=== PATIENT | female | born 1950 | race Two or more races ===

== ENCOUNTER 2022-02-27 10:10 | Outpatient (REF) | payer MEDICARE, SELFPAY ==
--- NOTE | ~2022-02-27 | XR_ITS ---
EXAMINATION: XR KNEE, LEFT CLINICAL INFORMATION: Osteoarthritis COMPARISON: None TECHNIQUE: Four views of the left knee. FINDINGS: The bones are osteopenic. There is marked joint space narrowing at the patellofemoral and femoral tibial joints. There may be some subchondral cyst formation. No significant osteophyte formation is seen. There is a large joint effusion. XR/XR knee LT 4V IMPRESSION: Osteopenia. Severe arthritis and large joint effusion.
[2022-02-27 13:19] LABS: MANUAL DIFF FLAG NO
[2022-02-27 13:26] LABS: Basophils Absolute Auto 0.1 X10*3/uL (0.0-0.2); Basophils Percent Auto 0.5 % (0-2); Eosinophils Percent Auto 0.3 % (0-4); Hematocrit 44.1 % (37.0-47.0); Hemoglobin 14.1 g/dl (12.0-16.0); Imm Gran Abs Auto 0.09 X10*3/uL (0.00-0.03); Imm Gran Pct Auto 0.7 % (0.0-0.4); Lymphocytes Absolute Auto 2.9 X10*3/uL (1.2-4.9); Lymphocytes Percent Auto 22.6 % (20-40); Mean Corpuscular Hemoglobin 27.1 pg (27.0-33.0); Mean Corpuscular Volume 84.6 fL (80.0-98.0); Mean Platelet Volume 10.2 fL (9.4-12.3); Monocytes Absolute Auto 0.9 X10*3/uL (0.1-1.2); Monocytes Percent Auto 7.3 % (2-11); Neutrophils Absolute Auto 8.8 x10*3/uL (2.0-8.3); Neutrophils Percent Auto 68.6 % (45-73); Platelet Count 379 X10*3/uL (160-400); Red Blood Count 5.21 X10*6/uL (4.20-5.50); Red Cell Distribution Width 13.2 % (11.0-16.0); White Blood Count 12.8 X10*3/uL (4.8-10.8)
[2022-02-27 13:44] LABS: Alanine Aminotransferase 17 U/L (0-31); Albumin Level 3.9 g/dL (3.5-5.0); Alkaline Phosphatase 100 U/L (39-117); Anion Gap 13 (12-20); Aspartate Amino Transferase 14 U/L (5-31); Bilirubin Total 0.5 mg/dL (0.0-1.0); Blood Urea Nitrogen 10 mg/dL (9-16); Calcium 9.4 mg/dL (8.4-10.2); Carbon Dioxide 28 mmol/L (22-29); Chloride 101 mmol/L (96-108); Cholesterol 223 mg/dL; Estimated Glomerular Filt Rate > 60; Glucose Fasting 108 mg/dL (60-99); HDL Cholesterol 54 mg/dL; LDL Cholesterol Calculated 142 mg/dl; Potassium 3.8 mmol/L (3.3-5.1); Sodium 138 mmol/L (135-145); Total Protein 6.8 g/dL (6.5-8.0); Triglycerides 135 mg/dL
== END 2022-02-27 10:11 | disposition home or self-care (01) ==
LOC: HO.XRAY 10:10
PROVIDERS: PCP Internal Medicine; Visit Provider Internal Medicine
DX: Z00.01 Encounter for general adult medical examination with abnormal findings (principal); M17.12 Unilateral primary osteoarthritis, left knee; F32.9 Major depressive disorder, single episode, unspecified; I10 Essential (primary) hypertension
CPT/HCPCS: 36415; 73564; 80053; 80061; 84443; 85025

== ENCOUNTER 2022-03-06 12:04 | Outpatient (REF) | payer MEDICARE, SELFPAY ==
--- NOTE | ~2022-03-06 | XR_ITS ---
EXAMINATION: XR KNEE AP STANDING CLINICAL INFORMATION: Pain COMPARISON: Left knee radiographs 02/27/2022 TECHNIQUE: AP bilateral standing view of the knees was obtained. XR/XR knee standing BI FINDINGS/IMPRESSION: No acute fracture or dislocation appreciated on this limited single view. Advanced degenerative changes of the left knee involving the medial lateral compartment joint space with near [id number] articulation. Moderate degenerative changes of the right knee with loss of medial and lateral compartment joint space, medial compartment osteophytes and spurring of the tibial spines. Generalized muscular atrophy.
== END 2022-03-06 12:05 | disposition home or self-care (01) ==
LOC: HO.HOSX 12:04
PROVIDERS: Visit Provider Orthopaedic Surgery
DX: M17.12 Unilateral primary osteoarthritis, left knee (principal)
CPT/HCPCS: 73565; 99202

== ENCOUNTER → 2022-05-02 10:00 | Outpatient (BNVA) | payer MEDICARE, SELFPAY | PROVIDERS: PCP Internal Medicine; Visit Provider Orthopaedic Surgery | DX: Z13.89 Encounter for screening for other disorder (principal) ==

== ENCOUNTER 2022-05-30 06:13 | Inpatient (IN) | payer MEDICARE, OTHER, MEDICAID, SELFPAY ==
--- NOTE | 2022-05-02 11:15 | ECG_ITS ---
Test Reason : Z01.810 Blood Pressure : / mmHG Vent. Rate : 077 BPM Atrial Rate : 077 BPM P-R Int : 158 ms QRS Dur : 080 ms QT Int : 402 ms P-R-T Axes : 052 042 027 degrees QTc Int : 454 ms Normal sinus rhythm Normal ECG No previous ECGs available Referred By: Jalil Giles Electronically Signed By:VERA WALKER
[2022-05-02 11:26] LABS: MANUAL DIFF FLAG NO
[2022-05-02 11:43] LABS: Basophils Percent Auto 0.4 % (0-2); Eosinophils Absolute Auto 0.2 X10*3/uL (0.0-0.4); Eosinophils Percent Auto 1.4 % (0-4); Hematocrit 36.6 % (37.0-47.0); Hemoglobin 11.4 g/dl (12.0-16.0); Imm Gran Abs Auto 0.04 X10*3/uL (0.00-0.03); Imm Gran Pct Auto 0.4 % (0.0-0.4); Lymphocytes Absolute Auto 2.6 X10*3/uL (1.2-4.9); Lymphocytes Percent Auto 24.2 % (20-40); Mean Corpuscular HGB Conc 31.1 g/dl (31.0-35.0); Mean Corpuscular Hemoglobin 26.2 pg (27.0-33.0); Mean Corpuscular Volume 84.1 fL (80.0-98.0); Mean Platelet Volume 9.1 fL (9.4-12.3); Monocytes Absolute Auto 1.1 X10*3/uL (0.1-1.2); Neutrophils Absolute Auto 6.9 x10*3/uL (2.0-8.3); Neutrophils Percent Auto 63.6 % (45-73); Platelet Count 485 X10*3/uL (160-400); Red Blood Count 4.35 X10*6/uL (4.20-5.50); Red Cell Distribution Width 14.1 % (11.0-16.0); White Blood Count 10.8 X10*3/uL (4.8-10.8)
[2022-05-02 12:14] LABS: Anion Gap 13 (12-20); Blood Urea Nitrogen 27 mg/dL (9-16); Calcium 9.3 mg/dL (8.4-10.2); Carbon Dioxide 29 mmol/L (22-29); Chloride 103 mmol/L (96-108); Estimated Glomerular Filt Rate > 60; Glucose Random 94 mg/dL (60-115); Potassium 3.9 mmol/L (3.3-5.1); Sodium 141 mmol/L (135-145)
[2022-05-16 14:39] VITALS: BP 169/74; PULSE 75; RESP 16; O2SAT 99; BMI 31.1
--- NOTE | 2022-05-16 14:49 | HO.ANESPROP2 ---
Documented by User: Lucero Whitaker NP 05/16/22 14:54 HPI - Anesthesia Eval Consult details Narrative: 72yo F for Left Knee Replacement Total PCP cleared [facility] Active Problems Active Problems: All Active Problems (Updated 05/16/22 @ 13:54 by Rea Diaz RN) Osteoarthritis of left knee (Acute) Past Medical History Medical History Arthritis Depression Hypercholesteremia Hypertension Insomnia Family History Family history of problems with anesthesia: No Surgical History Surgical History Hx of appendectomy Hx of section Hx of colonoscopy Hx of left cataract extraction Hx of left knee surgery History of Problems with Anesthesia: No Social History Social History Are you a primary career development coordinator/teacher to a significant other at home: No Do you presently have visiting nurse or other home services: No Patient Tobacco Use Status: Never used Tobacco Use of substances other than those prescribed or required for medical reasons: No Have you been hit, kicked, punched, or otherwise hurt by someone within the past year? If so, by whom?: No Are you DNR?: No Advance Directives: No Advance Directives Information Provided: Yes Advance Directives on File: No Recently lost weight without trying: No Narrative Narrative: No recent illness No CP/SOB within limits of knee pain Meds Allergies Allergy/AdvReac Type Severity Reaction Status Date / Time oxycodone [From Percocet] Allergy Anxiety Verified 05/30/22 07:12 pregabalin [From Lyrica] Allergy Rash Verified 05/25/22 09:59 tramadol Allergy Anxiety Verified 05/25/22 09:59 seafood AdvReac Vomiting Verified 05/30/22 07:12 Home Medications Medication Instructions Recorded Confirmed Last Taken Type diclofenac sodium 3 % topical gel 1 appl topical BID 05/02/22 05/16/22 Unknown History ibuprofen 600 mg tablet 600 mg PO TID PRN Pain 05/02/22 05/16/22 Unknown History mirtazapine 30 mg tablet 30 mg PO BEDTIME 05/02/22 05/16/22 Unknown History telmisartan 20 mg tablet 20 mg PO DAILY 05/02/22 05/16/22 Unknown History hydrochlorothiazide 12.5 mg capsule 1 cap PO DAILY 05/16/22 05/16/22 Unknown History magnesium oxide 500 mg tablet 500 mg PO DAILY 05/16/22 05/16/22 Unknown History potassium gluconate 550 mg (90 mg) 550 mg PO DAILY 05/16/22 05/16/22 Unknown History tablet rosuvastatin 10 mg tablet 10 mg PO DAILY 05/16/22 05/16/22 Unknown History vitamin B complex 1 tab PO DAILY 05/16/22 05/16/22 Unknown History trazodone 50 mg tablet 50 mg PO BEDTIME PRN Insomnia 05/25/22 05/30/22 Unknown History Exam Exam Date and Time: May 16, [id number] Height,Weight and Vital Signs: Height 5 ft 5 in Weight 84.822 kg Last Vital Signs Pulse 75 05/16/22 14:39 Resp 16 05/16/22 14:39 BP 169/74 H 05/16/22 14:39 Pulse Ox 99 05/16/22 14:39 O2 Del Method 05/16/22 14:39 Pertinent Lab Results Pertinent Lab Results: Laboratory Tests 05/02/22 05/02/22 11:25 11:25 WBC 10.8 RBC 4.35 Hgb 11.4 L Hct 36.6 L MCV 84.1 MCH 26.2 L MCHC 31.1 RDW 14.1 Plt Count 485 H D MPV 9.1 L Immature Gran % (Auto) 0.4 Neut % (Auto) 63.6 Lymph % (Auto) 24.2 [place] % (Auto) 10.0 Eos % (Auto) 1.4 Baso % (Auto) 0.4 Lymph # (Auto) 2.6 [place] # (Auto) 1.1 Eos # (Auto) 0.2 Baso # (Auto) 0.0 Abs Immat Gran (auto) 0.04 H Absolute Neuts (auto) 6.9 Absolute Nucleated RBC 0.000 Nucleated RBC % (auto) 0.0 Sodium 141 Potassium 3.9 Chloride 103 Carbon Dioxide 29 Anion Gap 13 BUN 27 H D Creatinine 0.70 Estim Creat Clear Calc TNP Estimated GFR > 60 Random Glucose 94 Calcium 9.3 Airway Mallampati Class: III TM Dist: >3cm Neck ROM: Full Denture: Upper (Implants on upper) Loose/Missing/Broken Teeth: Yes (2 molars missing) Heart: RRR Lungs: CTAB Assessment and Plan Assessment Anesthesia Assessment: Anesthesia Plan Discussed and PAT Visit Final Anesthetic Review Family History of Problems with Anesthesia: No History of Problems with Anesthesia: No Documented by User: Yair Swain MD 05/30/22 09:12 [facility] Past Medical History Medical History Arthritis Depression Hypercholesteremia Hypertension Insomnia Surgical History Surgical History Hx of appendectomy Hx of section Hx of colonoscopy Hx of left cataract extraction Hx of left knee surgery Social History Social History Are you a primary career development coordinator/teacher to a significant other at home: No Do you presently have visiting nurse or other home services: No Patient Tobacco Use Status: Never used Tobacco Use of substances other than those prescribed or required for medical reasons: No Have you been hit, kicked, punched, or otherwise hurt by someone within the past year? If so, by whom?: No Are you DNR?: No Advance Directives: No Advance Directives Information Provided: Yes Advance Directives on File: No Recently lost weight without trying: No Meds Allergies Allergy/AdvReac Type Severity Reaction Status Date / Time oxycodone [From Percocet] Allergy Anxiety Verified 05/30/22 07:12 pregabalin [From Lyrica] Allergy Rash Verified 05/25/22 09:59 tramadol Allergy Anxiety Verified 05/25/22 09:59 seafood AdvReac Vomiting Verified 05/30/22 07:12 Home Medications Medication Instructions Recorded Confirmed Last Taken Type diclofenac sodium 3 % topical gel 1 appl topical BID 05/02/22 05/16/22 Unknown History ibuprofen 600 mg tablet 600 mg PO TID PRN Pain 05/02/22 05/16/22 Unknown History mirtazapine 30 mg tablet 30 mg PO BEDTIME 05/02/22 05/16/22 Unknown History telmisartan 20 mg tablet 20 mg PO DAILY 05/02/22 05/16/22 Unknown History hydrochlorothiazide 12.5 mg capsule 1 cap PO DAILY 05/16/22 05/16/22 Unknown History magnesium oxide 500 mg tablet 500 mg PO DAILY 05/16/22 05/16/22 Unknown History potassium gluconate 550 mg (90 mg) 550 mg PO DAILY 05/16/22 05/16/22 Unknown History tablet rosuvastatin 10 mg tablet 10 mg PO DAILY 05/16/22 05/16/22 Unknown History vitamin B complex 1 tab PO DAILY 05/16/22 05/16/22 Unknown History trazodone 50 mg tablet 50 mg PO BEDTIME PRN Insomnia 05/25/22 05/30/22 Unknown History Assessment and Plan Final Anesthetic Review NPO: Yes ASA Class: III Final Preanesthetic Review: No Changes in Pt Med Stat, Meds/Allgs Chart Reviewed, Consent Obtained/Reviewed and Anes Risks/Benef Reviewed Patient Risk: Intermediate Procedure Risk: Intermediate Anesthetic Plan Anesthetic Plan: MAC:, Spinal and Regional Block Disposition: Standard PACU
[2022-05-16 16:51] LABS: MRSA Nasal PCR NEGATIVE (Negative); SA Nasal PCR POSITIVE (Negative)
[2022-05-30] VITALS (20 sets, daily range): BP systolic 114–187; BP diastolic 47–84; PULSE 65–92; RESP 17–20; TEMP 36.4–36.7; O2SAT 94–100
--- NOTE | ~2022-05-30 | XR_ITS ---
EXAMINATION: XR KNEE, LEFT CLINICAL INFORMATION: Status post TKA COMPARISON: None TECHNIQUE: Two views of the left knee. FINDINGS: Left knee prosthesis intact. No fracture or destructive lesion or alignment abnormality. Skin marie noted. XR/XR knee LT 2V IMPRESSION: Appropriate alignment of the left total knee arthroplasty.
[2022-05-30 06:37] LABS: COVID-19 Test Negative (Negative)
[2022-05-30] MEDS: Lactated Ringers 1,000 ML 100 ML IVCONT ×2 (06:49→16:04)
--- NOTE | 2022-05-30 07:43 | MHC.SHP ---
Pre-Procedural Eval Section A Date of Service: 05/30/22 The patient is an INPATIENT: No Changes since office visit: Yes Patient answered all questions; No Cold of Flu in the past 2 weeks, No New Medical Problems and No Changes in Medication The History & Physical has been completed within 30 days and I have reviewed it.: Yes Section B Chief Complaint: LTKA Allergies: Allergies Allergy/AdvReac Type Severity Reaction Status Date / Time oxycodone [From Percocet] Allergy Anxiety Verified 05/30/22 07:12 pregabalin [From Lyrica] Allergy Rash Verified 05/25/22 09:59 tramadol Allergy Anxiety Verified 05/25/22 09:59 seafood AdvReac Vomiting Verified 05/30/22 07:12 Plan I have reviewed the history and physical and performed a pertinent physical examination on my patient. No changes have occurred unless specified.
--- NOTE | 2022-05-30 08:51 | PHA.MEDREC ---
Pharmacy Consult ? Medication Reconciliation Pharmacy has reviewed the medication reconciliation completed by nursing.
--- NOTE | 2022-05-30 09:54 | PM.OP ---
Brief Operative Note Date of Service: 05/30/22 Pre-op diagnosis: Left knee OA Post-op diagnosis: same Procedure: Left TKA Implants: Moriches cemented Triathalon PS 01/26/11/32a Surgeon: Jalil Giles MD Anesthesia: regional and spinal Was an Director Informatics used for this Procedure?: Yes Director Informatics: Elizabeth Sloan Estimated blood loss (mL): 150 IV fluids (mL): 1,000 Pathology: other Condition: stable Disposition: PACU
--- NOTE | 2022-05-30 09:59 | P.OP_ITS ---
Operative Note Operative Note Date of Service: 05/30/22 Narrative: Date of Service: 05/30/22 Pre-op diagnosis: Left knee OA Post-op diagnosis: same Procedure: Left TKA Implants: Kerrick cemented Triathalon PS 01/26/TS/32a Surgeon: Jalil Giles MD Anesthesia: regional and spinal Was an Utility Sales Representative used for this Procedure?: Yes Utility Sales Representative: Elizabeth Sloan Estimated blood loss (mL): 150 IV fluids (mL): 1,000 Pathology: other Condition: stable Disposition: PACU Procedure in detail: The patient was brought to the operating room and prepped and draped in standard sterile fashion. A time-out was called to identify proper site proper procedure proper surgeon and IV antibiotics were administered. 1 g of IV tranexamic acid was administered. I began by making a midline incision to the retinaculum and performed a medial parapatellar arthrotomy. The patella was translated laterally and the knee was flexed up. She had synovitis with tricompartmental severe OA with tibial eburnation. I performed a small medial peel and resected the infrapatellar fat pad. Coke's line was then used to drill my intramedullary femoral guide and my distal femur cut of 10mm was made in 5 degrees of valgus while protecting the soft tissues. I then measured a # 3 femur and placed my cutting guide and made my anterior posterior and chamfer cuts protecting the soft tissues at all times. I then made my box but removing the PCL. Once I was satisfied with my cuts I turned my attention to the tibia. I removed the meniscus medially and laterally and , using an external cutting guide, in line with the tibial crest and the third ray, I made my distal tibial cut in 0 deg slope of while protecting the PCL the posterior soft tissues at all times. An extension block was used to confirm appropriate amount of bony resection. I then sized a #3 tibia and once I was satisfied that there was complete tibial coverage I placed my trial and with the trial femur in place took the knee through range of motion. I was satisfied with the extension and flexion as well as the stability and balance at 0, 30 and 90 degrees. I then turned my attention to the patella where I removed 1 cm from the undersurface of the patella and then trialed a 32a patellar button. Again the knee was taken through range of motion I was satisfied with the tracking. I then returned to the femur and drilled my femoral lug holes and prepared the tibia. A femoral bone plug was placed and the knee was irrigated copiously. I then cemented the patella, tibia and femur in standard fashion. I trialed different inserts until I selected a #11TS insert. The final insert was placed and a 3 minutes iodine soak with local TXA was performed. The knee was then closed with a running Quill suture, a 3 0 Vicryl and marie on the skin. Patient was then placed in sterile dressing and brought to recovery room in stable condition there were no known complications.
[2022-05-30] MEDS: HYDROmorphone HCl 0.5 MG/0.5 ML SYRINGE 0.25 MG IVPUSH ×4 (10:39→20:38)
[2022-05-30] MEDS: Acetaminophen 325 MG TABLET 650 MG PO ×2 (11:38→19:44)
[2022-05-30] MEDS: oxyCODONE HCl Immed Release 5 MG TABLET 10 MG PO ×2 (12:23→19:44)
--- NOTE | 2022-05-30 15:44 | P.CONHOSP_ITS ---
History of Present Illness Data of Consult Service Date: 05/30/22 Primary Care Provider: Marita Raines MD HPI Reason for consult: Routine medical management This is a 72 yo F with a PMH of HTN, HLD, OA who is admitted post L TKA. Medical consult requested for routine medical management. Pt is seen and examined in her room. Director Of Scout Work services are used. Her son is bedside. The patient reports L leg pain, but otherwise no complaints. She initially states she does not have any chronic medical diagnosis, but upon questioning her re: her home meds, she does endorse HTN and HLD. Review of Systems Review of Systems: negative except HPI [facility] Medical History (Updated 05/30/22 @ 15:53 by Bird Cerrato MD) Arthritis Depression Hypercholesteremia Hypertension Insomnia Surgical History Hx of appendectomy Hx of section Hx of colonoscopy Hx of left cataract extraction Hx of left knee surgery Social History Household Members: Other Household Members Other:: son Housing: Apartment Are you a primary health care consultant to a significant other at home: No Do you presently have visiting nurse or other home services: No Patient Tobacco Use Status: Never used Tobacco Use of substances other than those prescribed or required for medical reasons: No Have you been hit, kicked, punched, or otherwise hurt by someone within the past year? If so, by whom?: No Do you feel safe in your current relationship?: No Current Relationship Is there a partner from a previous relationship who is making you feel unsafe now?: No Are you made to feel afraid or neglected: No Are you DNR?: No Advance Directives: No Advance Directives Information Provided: Yes Advance Directives on File: No Do you have thoughts of harming others: None Do you have a plan to hurt others: No Plan Recently lost weight without trying: No How much weight loss: Not applicable Eating poorly because of decreased appetite: No Nutrition screen score: 0 Nutrition Risks: No Nutritional Risk Patient : No : No Poor oral hygiene: No Meds Allergies Allergy/AdvReac Type Severity Reaction Status Date / Time oxycodone [From Percocet] Allergy Anxiety Verified 05/30/22 15:07 pregabalin [From Lyrica] Allergy Rash Verified 05/30/22 15:07 tramadol Allergy Anxiety Verified 05/30/22 15:07 seafood AdvReac Vomiting Verified 05/30/22 15:07 Active Medications: Current Medications Acetaminophen (Acetaminophen 325 Mg Tablet) 650 mg PO Q6H PRN PRN Reason: Pain, Mild (Pain Scale 1-3) Aspirin (Aspirin 325 Mg Tablet) 325 mg PO BID [facility] Atorvastatin Calcium (Atorvastatin Calcium 40 Mg Tablet) 40 mg PO DAILY [facility] Celecoxib (Celecoxib 200 Mg Capsule) 200 mg PO BID [facility] Docusate Sodium (Docusate Sodium 100 Mg Capsule) 100 mg PO BID [facility] Hydrochlorothiazide (Hydrochlorothiazide 12.5 Mg Tablet) 12.5 mg PO DAILY [facility]; Protocol Hydromorphone HCl (Hydromorphone Hcl 0.5 Mg/0.5 Ml Syringe) 0.25 mg IVPUSH Q4H PRN; Protocol PRN Reason: Pain, Severe (Pain Scale 7-10) Lactated Ringer's (Lr) 1,000 mls @ 100 mls/hr IVCONT .Q10H [facility] Magnesium Oxide (Magnesium Oxide 400 Mg Tablet) 400 mg PO DAILY [facility] Mirtazapine (Mirtazapine 30 Mg Tablet) 30 mg PO BEDTIME [facility] Multivitamins/Vitamin C (Multivitamin Tablet) 1 tab PO DAILY [facility] Non-Formulary Medication (Diclofenac Sodium) 1 appl TOPICAL BID [facility] Non-Formulary Medication (Potassium Gluconate) 550 mg PO DAILY [facility] Ondansetron HCl (Ondansetron Hcl 4 Mg/2 Ml Vial) 4 mg IVPUSH Q8H PRN PRN Reason: Nausea and Vomiting Oxycodone HCl (Oxycodone Hcl Immed Release 5 Mg Tablet) 10 mg PO Q4H PRN PRN Reason: Pain, Moderate (Pain Scale 4-6 Last Admin: 05/30/22 12:23 Dose: 10 mg Oxycodone HCl (Oxycodone Hcl Er 10 Mg Tab.Er.12h) 10 mg PO BID [facility] Sodium Chloride (0.9 % Sodium Chloride Flush 3 Ml Syringe) 3 ml IVFLUSH QSHIFT [facility] Trazodone HCl (Trazodone Hcl 50 Mg Tablet) 50 mg PO BEDTIME PRN PRN Reason: Insomnia Valsartan (Valsartan 40 Mg Tablet) 40 mg PO DAILY [facility] Home Medications Medication Instructions Recorded Confirmed Last Taken Type diclofenac sodium 3 % topical gel 1 appl topical BID 05/02/22 05/16/22 Unknown History ibuprofen 600 mg tablet 600 mg PO TID PRN Pain 05/02/22 05/16/22 Unknown History mirtazapine 30 mg tablet 30 mg PO BEDTIME 05/02/22 05/16/22 Unknown History telmisartan 20 mg tablet 20 mg PO DAILY 05/02/22 05/16/22 Unknown History hydrochlorothiazide 12.5 mg capsule 1 cap PO DAILY 05/16/22 05/16/22 Unknown History magnesium oxide 500 mg tablet 500 mg PO DAILY 05/16/22 05/16/22 Unknown History potassium gluconate 550 mg (90 mg) 550 mg PO DAILY 05/16/22 05/16/22 Unknown History tablet rosuvastatin 10 mg tablet 10 mg PO DAILY 05/16/22 05/16/22 Unknown History vitamin B complex 1 tab PO DAILY 05/16/22 05/16/22 Unknown History trazodone 50 mg tablet 50 mg PO BEDTIME PRN Insomnia 05/25/22 05/30/22 Unknown History Physical Exam Vital Signs and Narrative: Vital Signs: Last Vital Signs Temp 97.5 F 05/30/22 09:48 Pulse 79 05/30/22 13:29 Resp 17 05/30/22 13:29 BP 121/60 05/30/22 13:29 Pulse Ox 94 05/30/22 13:29 O2 Del Method 05/30/22 13:29 O2 Flow Rate 6 05/30/22 09:48 BMI result Body Mass Index 31.1 Const: Other: General - sleepy but easily awakens and answers questions appropriately Cardiovascular - regular rate and rhythm, S1-S2 Lungs - normal respiratory effort, clear to auscultation bilaterally, no wheezing Abdomen - soft, nontender, no rebound or guarding Extremities - no edema bilaterally Neuro - awake and alert, no focal deficits Results Labs CBC and Chem 7: 05/02/22 11:25 05/02/22 11:25 Labs: Laboratory Results - last 24 hr 05/30/22 05/30/22 06:00 06:59 COVID-19 ([facility]) Negative COVID-19 Clin Com See Note Blood Type O Positive Antibody Screen NEGATIVE Imaging Radiologist's Impressions: Impressions Knee X-Ray 07/05/22 10:18 IMPRESSION: Appropriate alignment of the left total knee arthroplasty. Assessment and Plan (1) Hypertension: Status: Acute Plan This is a 72 yo F with a PMH of HTN, HLD, OA who is s/p L TKA. Medical consult requested for routine medical mgmt. 1. HTN continue baseline meds monitor BP 2. HLD statin 3. OA s/p L TKA mgmt per ortho would rec to check post-op labs tomorrow AM. Will follow tomorrow.
[2022-05-30] MEDS: ondansetron HCL 4 MG/2 ML VIAL IVPUSH (16:03)
[2022-05-30] MEDS: ceFAZolin Sodium/Dextrose,Iso 2 GM/50 ML PIGGYBACK IV (16:04)
[2022-05-30] MEDS: traZODone HCL 50 MG TABLET PO (20:38)
[2022-05-30] MEDS: Mirtazapine 30 MG TABLET PO (20:38)
[2022-05-30] MEDS: Docusate Sodium 100 MG CAPSULE PO (20:38)
[2022-05-30] MEDS: Celecoxib 200 MG CAPSULE PO (20:38)
[2022-05-30] MEDS: oxyCODONE HCl ER 10 MG TAB.ER.12H PO (20:38)
[2022-05-31] VITALS (8 sets, daily range): BP systolic 97–172; BP diastolic 50–92; PULSE 74–96; RESP 14–18; TEMP 36.2–36.9; O2SAT 92–98
[2022-05-31] MEDS: Lactated Ringers 1,000 ML 100 ML IVCONT ×3 (00:27→21:44)
[2022-05-31] MEDS: HYDROmorphone HCl 0.5 MG/0.5 ML SYRINGE 0.25 MG IVPUSH ×3 (00:27→21:41)
[2022-05-31 06:29] LABS: MANUAL DIFF FLAG NO
[2022-05-31 06:45] LABS: Basophils Percent Auto 0.2 % (0-2); Eosinophils Percent Auto 0.1 % (0-4); Hematocrit 29.3 % (37.0-47.0); Hemoglobin 9.2 g/dl (12.0-16.0); Imm Gran Abs Auto 0.05 X10*3/uL (0.00-0.03); Imm Gran Pct Auto 0.6 % (0.0-0.4); Lymphocytes Percent Auto 23.8 % (20-40); Mean Corpuscular HGB Conc 31.4 g/dl (31.0-35.0); Mean Corpuscular Hemoglobin 25.8 pg (27.0-33.0); Mean Corpuscular Volume 82.1 fL (80.0-98.0); Mean Platelet Volume 9.6 fL (9.4-12.3); Monocytes Absolute Auto 0.9 X10*3/uL (0.1-1.2); Monocytes Percent Auto 10.8 % (2-11); Neutrophils Absolute Auto 5.4 x10*3/uL (2.0-8.3); Neutrophils Percent Auto 64.5 % (45-73); Platelet Count 373 X10*3/uL (160-400); Red Blood Count 3.57 X10*6/uL (4.20-5.50); Red Cell Distribution Width 13.7 % (11.0-16.0); White Blood Count 8.4 X10*3/uL (4.8-10.8)
[2022-05-31 06:55] LABS: Anion Gap 10 (12-20); Blood Urea Nitrogen 11 mg/dL (9-16); Calcium 8.6 mg/dL (8.4-10.2); Carbon Dioxide 29 mmol/L (22-29); Chloride 105 mmol/L (96-108); Creatinine Clr Calc Pharmacy 89.5; Estimated Glomerular Filt Rate > 60; Glucose Fasting 115 mg/dL (60-99); Sodium 140 mmol/L (135-145)
--- NOTE | 2022-05-31 07:54 | PM.PNORT ---
Subjective Subjective Date of Service: 05/31/22 Interval history: POD1 s/p LTKA. No overnight events. Pain is well managed. Patient is resting comfortably in bed. Family member at bedside. No additional complaints. Physical Exam Vital Signs: Vital Signs: Last Vital Signs Temp 97.1 F 05/31/22 03:34 Pulse 75 05/31/22 03:34 Resp 14 05/31/22 03:34 BP 121/68 05/31/22 03:34 Pulse Ox 94 05/31/22 03:34 O2 Del Method 05/31/22 03:34 O2 Flow Rate 2 05/30/22 20:00 BMI result Body Mass Index 31.1 Const: General: cooperative, healthy appearing and no acute distress Resp: Effort & Inspection: normal respiratory effort and able to speak in complete sentences Cardio: Rate: regular rate Peripheral pulses: Peripheral pulses 2+ throughout GI: Palpation (GI): Soft to palpation Skin: Lesions: no lesions Rashes: no rashes Extrem: Other: Left knee Aquacel is clean, dry, and intact. NVI. Procedures Date of Service Date of Service: 05/31/22 Progress Note: A&P Assessment and plan (1) Status post total knee replacement, left: Status: Acute Assessment and Plan: Continue pain mgmnt Begin ASA for dvt ppx begin PT for LTKA Dispo planning-Pending PT eval, pain mgmnt Time Spent With Patient Time: Total time spent is greater than 50% in coordination of care (as documented) at patient's floor/unit and/or counseling patient: Quality Stroke Does the patient have a stroke diagnosis?: No VTE Prior VTE?: No VTE Risk Level:: Medical - moderate - high VTE Device Contraindication: N/A - Device Ordered VTE Drug Contraindication: N/A - Med Ordered
[2022-05-31] MEDS: Atorvastatin Calcium 40 MG TABLET PO (08:16)
[2022-05-31] MEDS: Celecoxib 200 MG CAPSULE PO ×2 (08:16→20:54)
[2022-05-31] MEDS: Docusate Sodium 100 MG CAPSULE PO ×2 (08:16→20:54)
[2022-05-31] MEDS: Multivitamin TABLET 1 TAB PO (08:16)
[2022-05-31] MEDS: Aspirin 325 MG TABLET PO ×2 (08:16→20:54)
[2022-05-31] MEDS: Valsartan 40 MG TABLET PO (08:16)
[2022-05-31] MEDS: Magnesium Oxide 400 MG TABLET PO (08:16)
[2022-05-31] MEDS: oxyCODONE HCl ER 10 MG TAB.ER.12H PO ×2 (08:16→20:54)
[2022-05-31] MEDS: hydroCHLOROthiazide 12.5 MG TABLET PO (08:16)
[2022-05-31] MEDS: diphenhydrAMINE HCL 25 MG TABLET PO ×2 (10:29→23:51)
[2022-05-31] MEDS: Acetaminophen 325 MG TABLET 650 MG PO (10:43)
[2022-05-31] MEDS: oxyCODONE HCl Immed Release 5 MG TABLET 10 MG PO ×3 (10:43→23:40)
--- NOTE | 2022-05-31 11:15 | HO.POSTANES ---
Post Anesthesia Evaluation Post Anesthesia Evaluation Vital Signs: Vital Signs Temp Pulse Resp BP Pulse Ox O2 Del Method 05/31/22 08:11 121/59 L 05/31/22 07:57 97.9 F 74 16 97/50 L 92 Room Air 05/31/22 03:34 97.1 F 75 14 121/68 94 Room Air 05/31/22 00:00 97.8 F 78 16 137/61 94 Room Air Anesthesia: Spinal and Nerve Block Mental Status: Awake Pain Control: Satisfactory Nausea/Vomiting: None Hydration: Adequate Anesthesia-Related Issues: No Anes. Related Issues
--- NOTE | 2022-05-31 11:41 | HO.PM.IMPN ---
Subjective Subjective Date of Service: 05/31/22 Interval History: cc: knee pain interval history:knee itchy Respiratory Respiratory: Reports no additional respiratory complaints Gastrointestinal Gastrointestinal: Reports no additional gastrointestinal complaints Physical Exam Vital Signs: Vital Signs: Last Vital Signs Temp 98.4 F 05/31/22 11:19 Pulse 78 05/31/22 11:19 Resp 18 05/31/22 11:19 BP 120/60 05/31/22 11:19 Pulse Ox 93 05/31/22 11:19 O2 Del Method 05/31/22 11:19 O2 Flow Rate 2 05/30/22 20:00 BMI result Body Mass Index 31.1 General: AO X 3, no acute distress Resp: CTA bilateral, no accessory muscles used CVS: S1,S2,RRR GI: soft, non tender, non distended Neuro: motor grossly intact, alert Psych: appropriate affect, appropriate insight Objective Data Active Medications Acetaminophen (Acetaminophen 325 Mg Tablet) 650 mg PO Q6H PRN PRN Reason: Pain, Mild (Pain Scale 1-3) Last Admin: 05/31/22 10:43 Dose: 650 mg Documented By: CHRISTINA Aspirin (Aspirin 325 Mg Tablet) 325 mg PO BID [facility] Last Admin: 05/31/22 08:16 Dose: 325 mg Documented By: CHRISTINA Atorvastatin Calcium (Atorvastatin Calcium 40 Mg Tablet) 40 mg PO DAILY [facility] Last Admin: 05/31/22 08:16 Dose: 40 mg Documented By: CHRISTINA Celecoxib (Celecoxib 200 Mg Capsule) 200 mg PO BID [facility] Last Admin: 05/31/22 08:16 Dose: 200 mg Documented By: CHRISTINA Diphenhydramine HCl (Diphenhydramine Hcl 25 Mg Tablet) 25 mg PO Q6H PRN PRN Reason: Itching Last Admin: 05/31/22 10:29 Dose: 25 mg Documented By: CHRISTINA Docusate Sodium (Docusate Sodium 100 Mg Capsule) 100 mg PO BID [facility] Last Admin: 05/31/22 08:16 Dose: 100 mg Documented By: CHRISTINA Hydrochlorothiazide (Hydrochlorothiazide 12.5 Mg Tablet) 12.5 mg PO DAILY [facility]; Protocol Last Admin: 05/31/22 08:16 Dose: 12.5 mg Documented By: CHRISTINA Hydromorphone HCl (Hydromorphone Hcl 0.5 Mg/0.5 Ml Syringe) 0.25 mg IVPUSH Q4H PRN; Protocol PRN Reason: Pain, Severe (Pain Scale 7-10) Last Admin: 05/31/22 00:27 Dose: 0.25 mg Documented By: KATIE Lactated Ringer's (Lr) 1,000 mls @ 100 mls/hr IVCONT .Q10H [facility] Last Admin: 05/31/22 09:00 Dose: 100 mls/hr Documented By: CHRISTINA Magnesium Oxide (Magnesium Oxide 400 Mg Tablet) 400 mg PO DAILY [facility] Last Admin: 05/31/22 08:16 Dose: 400 mg Documented By: CHRISTINA Mirtazapine (Mirtazapine 30 Mg Tablet) 30 mg PO BEDTIME [facility] Last Admin: 05/30/22 20:38 Dose: 30 mg Documented By: KATIE Multivitamins/Vitamin C (Multivitamin Tablet) 1 tab PO DAILY [facility] Last Admin: 05/31/22 08:16 Dose: 1 tab Documented By: CHRISTINA Non-Formulary Medication (Diclofenac Sodium) 1 appl TOPICAL BID [facility] Non-Formulary Medication (Potassium Gluconate) 550 mg PO DAILY [facility] Ondansetron HCl (Ondansetron Hcl 4 Mg/2 Ml Vial) 4 mg IVPUSH Q8H PRN PRN Reason: Nausea and Vomiting Last Admin: 05/30/22 16:03 Dose: 4 mg Documented By: GIANA Oxycodone HCl (Oxycodone Hcl Immed Release 5 Mg Tablet) 10 mg PO Q4H PRN PRN Reason: Pain, Moderate (Pain Scale 4-6 Last Admin: 05/31/22 10:43 Dose: 10 mg Documented By: CHRISTINA Oxycodone HCl (Oxycodone Hcl Er 10 Mg Tab.Er.12h) 10 mg PO BID [facility] Last Admin: 05/31/22 08:16 Dose: 10 mg Documented By: CHRISTINA Sodium Chloride (0.9 % Sodium Chloride Flush 3 Ml Syringe) 3 ml IVFLUSH QSHIFT [facility] Last Admin: 05/31/22 08:19 Dose: Not Given Documented By: CHRISTINA Non-Admin Reason: IV Running Trazodone HCl (Trazodone Hcl 50 Mg Tablet) 50 mg PO BEDTIME PRN PRN Reason: Insomnia Last Admin: 05/30/22 20:38 Dose: 50 mg Documented By: KATIE Valsartan (Valsartan 40 Mg Tablet) 40 mg PO DAILY [facility] Last Admin: 05/31/22 08:16 Dose: 40 mg Documented By: CHRISTINA Labs CBC & Chem 7: 05/31/22 06:14 05/31/22 06:14 Labs: Laboratory Results - last 24 hr 05/31/22 05/31/22 06:14 06:14 MCV 82.1 MCH 25.8 L MCHC 31.4 RDW 13.7 Plt Count 373 MPV 9.6 Immature Gran % (Auto) 0.6 H Neut % (Auto) 64.5 Lymph % (Auto) 23.8 Dewey % (Auto) 10.8 Eos % (Auto) 0.1 Baso % (Auto) 0.2 Lymph # (Auto) 2.0 Dewey # (Auto) 0.9 Eos # (Auto) 0.0 Baso # (Auto) 0.0 Abs Immat Gran (auto) 0.05 H Absolute Neuts (auto) 5.4 Absolute Nucleated RBC 0.000 Nucleated RBC % (auto) 0.0 Anion Gap 10 L Estim Creat Clear Calc 89.5 Estimated GFR > 60 Fasting Glucose 115 H Calcium 8.6 D Assessment and Plan (1) Status post total knee replacement, left: Status: Acute Plan 72F presented for elective left TKA htn continue valsartan, hctz hld lipitor will sign off for now, please recall if needed Quality Stroke Does the patient have a stroke diagnosis?: No VTE Prior VTE?: No VTE Risk Level:: Medical - moderate - high VTE Device Contraindication: N/A - Device Ordered VTE Drug Contraindication: N/A - Med Ordered
--- NOTE | 2022-05-31 12:05 | MHC.CM.PN ---
IMM 05/31/22, EMR REVEIWED, PT W/R TKA, CM MET W/PT AND DTR AT BEDSIDE VIA HUMAN RESOURCES OFFICE MANAGER, PT REPORTS SHE LIVES W/ADULT SON, HAS A CANE, WALKER AND SHOWER BENCH, PT DENIES SERVICES AND DTR REPORTS THEY ARE IN THE PROCESS OF GETTING [facility] SERVICES FOR PT, PT'S SON NICOLE ASSISTS W/ALL NEEDS INCLUDING SHOWERING. PT REPORTS SHE WOULD LIKE TO RETURN HOME W/SERVICES AND DECLINES STR, DTR REPORTS SHE WILL NEED TRANSPORT SHE WILL NOT BE ABLE TO MANAGE 3 FLIGHTS OF STAIRS TO GET INTO APT. PCP: ALEXA COWART HCP: NICOLE ARMENDARIZ [phone] PFIZER X 3 D/C PLAN: HOME W/HVNA FOR HOME PT, [facility]SA FOR ANTICOAGULANT, PT WILL NEED TRANSPORT
[2022-05-31] MEDS: traZODone HCL 50 MG TABLET PO (20:54)
[2022-05-31] MEDS: Mirtazapine 30 MG TABLET PO (20:54)
[2022-05-31] MEDS: 0.9 % Sodium Chloride Flush 3 ML SYRINGE IVFLUSH (20:58)
[2022-06-01 04:00] VITALS: BP 128/64; PULSE 91; RESP 18; TEMP 36.6; O2SAT 93
[2022-06-01] MEDS: oxyCODONE HCl Immed Release 5 MG TABLET 10 MG PO (06:18)
[2022-06-01 06:39] LABS: MANUAL DIFF FLAG NO
[2022-06-01 06:48] LABS: Basophils Percent Auto 0.2 % (0-2); Eosinophils Absolute Auto 0.2 X10*3/uL (0.0-0.4); Eosinophils Percent Auto 2.4 % (0-4); Hematocrit 25.8 % (37.0-47.0); Hemoglobin 8.2 g/dl (12.0-16.0); Imm Gran Abs Auto 0.05 X10*3/uL (0.00-0.03); Imm Gran Pct Auto 0.6 % (0.0-0.4); Lymphocytes Absolute Auto 2.2 X10*3/uL (1.2-4.9); Mean Corpuscular HGB Conc 31.8 g/dl (31.0-35.0); Mean Corpuscular Hemoglobin 26.3 pg (27.0-33.0); Mean Corpuscular Volume 82.7 fL (80.0-98.0); Mean Platelet Volume 9.9 fL (9.4-12.3); Monocytes Absolute Auto 0.9 X10*3/uL (0.1-1.2); Monocytes Percent Auto 10.7 % (2-11); Neutrophils Absolute Auto 5.3 x10*3/uL (2.0-8.3); Neutrophils Percent Auto 61.1 % (45-73); Platelet Count 348 X10*3/uL (160-400); Red Blood Count 3.12 X10*6/uL (4.20-5.50); White Blood Count 8.7 X10*3/uL (4.8-10.8)
[2022-06-01 07:16] LABS: Anion Gap 9 (12-20); Blood Urea Nitrogen 6 mg/dL (9-16); Calcium 8.1 mg/dL (8.4-10.2); Carbon Dioxide 30 mmol/L (22-29); Chloride 105 mmol/L (96-108); Estimated Glomerular Filt Rate > 60; Glucose Fasting 113 mg/dL (60-99); Potassium 3.5 mmol/L (3.3-5.1); Sodium 140 mmol/L (135-145)
[2022-06-01 07:28] VITALS: BP 140/53; PULSE 100; RESP 18; TEMP 36.3; O2SAT 92
[2022-06-01] MEDS: Valsartan 40 MG TABLET PO (08:01)
[2022-06-01] MEDS: Aspirin 325 MG TABLET PO (08:01)
[2022-06-01] MEDS: Multivitamin TABLET 1 TAB PO (08:01)
[2022-06-01] MEDS: hydroCHLOROthiazide 12.5 MG TABLET PO (08:01)
[2022-06-01] MEDS: diphenhydrAMINE HCL 25 MG TABLET PO (08:01)
[2022-06-01] MEDS: Celecoxib 200 MG CAPSULE PO (08:02)
[2022-06-01] MEDS: oxyCODONE HCl ER 10 MG TAB.ER.12H PO (08:02)
[2022-06-01] MEDS: Docusate Sodium 100 MG CAPSULE PO (08:02)
[2022-06-01] MEDS: Magnesium Oxide 400 MG TABLET PO (08:02)
[2022-06-01] MEDS: Atorvastatin Calcium 40 MG TABLET PO (08:02)
[2022-06-01] MEDS: 0.9 % Sodium Chloride Flush 3 ML SYRINGE IVFLUSH (08:05)
--- NOTE | 2022-06-01 11:29 | P.DS_ITS ---
DS: Providers Provider Date of Service: 06/01/22 Date of admission: 05/30/22 06:13 Primary care physician: Marita Raines MD Consults: 05/30/22 14:57 Consult to Hospitalist Routine Consulting Provider: Hospitalist Reason For Exam: routine medical managment DS: Diagnosis Discharge Diagnosis (1) Status post total knee replacement, left: Status: Acute DS: Summary Hospital Course Hospital Course: The patient underwent a successful left total knee arthroplasty, was transferred to PACU and then to the floor to recover. During their stay, their vitals were stable, afebrile at 98.2. Labs were unremarkable, H/H 8.2/25.8 . POD 1 she was started on ASA for DVT ppx, they also received PT services twice a day. Prior to discharge, their dressing was change, incision clean dry and intact, new Aquacel dressing applied and the plan was to be discharged home with vna Time Spent with Patient Time attestation: Total time spent providing and/or coordinating discharge services: Discharge coordination time: Less than 30 minutes Quality: Safe Use of Opioids Does Pt have an Active Cancer Diagnosis on the Problem List?: No Quality: Stroke Does the patient have a stroke diagnosis?: No Physical Exam Vital Signs: Vital Signs: Last Vital Signs Temp 97.4 F 06/01/22 07:28 Pulse 100 06/01/22 07:28 Resp 18 06/01/22 07:28 BP 140/53 H 06/01/22 07:28 Pulse Ox 92 06/01/22 07:28 O2 Del Method 06/01/22 07:28 O2 Flow Rate 2 05/30/22 20:00 BMI result Body Mass Index 31.1 Const: General: cooperative, healthy appearing and no acute distress Resp: Effort & Inspection: normal respiratory effort and able to speak in complete sentences Cardio: Rate: regular rate Peripheral pulses: Peripheral pulses 2+ throughout GI: Palpation (GI): Soft to palpation Skin: General skin exam: no rashes or lesions noted Extrem: Other: incision clean dry and intact. Noy intact. No erythema or joint effusion. Calf supple nontender. Neurovascularly intact. DS: Data Data Completed and Pending Pending studies at discharge: Pending at discharge 05/30/22 09:21 Surgical [PTH] Routine Labs on day of discharge: Laboratory Results - last 24 hr 06/01/22 06/01/22 05:29 05:29 WBC 8.7 RBC 3.12 L Hgb 8.2 L Hct 25.8 L MCV 82.7 MCH 26.3 L MCHC 31.8 RDW 14.0 Plt Count 348 MPV 9.9 Immature Gran % (Auto) 0.6 H Neut % (Auto) 61.1 Lymph % (Auto) 25.0 Nicholas % (Auto) 10.7 Eos % (Auto) 2.4 Baso % (Auto) 0.2 Lymph # (Auto) 2.2 Nicholas # (Auto) 0.9 Eos # (Auto) 0.2 Baso # (Auto) 0.0 Abs Immat Gran (auto) 0.05 H Absolute Neuts (auto) 5.3 Absolute Nucleated RBC 0.000 Nucleated RBC % (auto) 0.0 Sodium 140 Potassium 3.5 Chloride 105 Carbon Dioxide 30 H Anion Gap 9 L BUN 6 L Creatinine 0.56 Estim Creat Clear Calc 99.0 Estimated GFR > 60 Fasting Glucose 113 H Calcium 8.1 L Discharge Plan Discharge Patient Disposition: Home Health Service Discharge Diagnosis: LT TKA Referrals: [facility] [Outside] - 1 Day (HOME PHYSICAL THERAPY) Ericka Valdez PA-C [Physician Youth Coordinator] - 2 Weeks (06/15/22 1:30 [facility] Ericka Valdez PA-C) Discharge Medications: New docusate sodium 100 mg Capsule 100 mg PO BID 14 Days Qty: 28 0RF oxycodone 10 mg tablet 10 mg PO Q4H PRN (Reason: Pain, Moderate (Pain Scale 4-6) 7 Days Qty: 42 0RF Rx Instructions: Partial Fill upon patient request. celecoxib 200 mg Capsule 200 mg PO BID 30 Days Qty: 60 0RF acetaminophen 325 mg Tablet 650 mg PO Q6H PRN (Reason: Pain, Mild (Pain Scale 1-3)) 30 Days Qty: 240 0RF aspirin 325 mg Tablet 325 mg PO BID 42 Days Qty: 84 0RF diphenhydramine HCl [Allergy Relief(diphenhydramin)] 25 mg Tablet 25 mg PO Q6H PRN (Reason: Itching) 14 Days Qty: 56 0RF Continued magnesium oxide 500 mg Tablet 500 mg PO DAILY vitamin B complex Tablet 1 tab PO DAILY rosuvastatin 10 mg Tablet 10 mg PO DAILY potassium gluconate 550 mg (90 mg) Tablet 550 mg PO DAILY hydrochlorothiazide 12.5 mg capsule 1 cap PO DAILY trazodone 50 mg tablet 50 mg PO BEDTIME PRN (Reason: Insomnia) mirtazapine 30 mg tablet 30 mg PO BEDTIME diclofenac sodium 3 % gel 1 appl topical BID telmisartan 20 mg tablet 20 mg PO DAILY Discontinued ibuprofen 600 mg tablet 600 mg PO TID PRN (Reason: Pain) Discharge Orders: Discharge Order (Routine); Ordered 06/01/22 Ordered By: Ericka Valdez Diet: Regular diet Activity on Discharge: Use cane or walker Stand Alone Forms: Patient Portal Discharge page Care Plan Goals: Restore function of joint Health Concerns: none Plan of Treatment: Physical Therapy Pain management DVT prophylaxis Assessment: Physical Therapy for Total knee arthroplasty: WBAT, gait training, ROM 0-12, quad strength * Limit stair climbing * No showering, no tub bath-keep dressing clean, dry and intact * No driving x6 weeks * Continue Aspirin twice a day x 6 weeks * Follow up with [facility] [place] [facility]: * --you will also have your first out patient PT eugene on the day of your post op appt-so please plan on being in the office that day for an extended period of time. Discharge Date/Time: 06/01/22 11:57
[2022-06-01 11:30] VITALS: BP 125/62; PULSE 88; RESP 18; TEMP 36.8; O2SAT 95
--- NOTE | 2022-06-01 11:53 | PC.NURSE ---
Alert and oriented. C/O left knee pain, schedule oxycodone given with good effect. VSS, afebrile, no acute resp. distress noted. Did stairs with PT this morning. New order to discharge patient home. Went over discharge instructions, and follow up apt with patient with the help of an orthopedic podiatrist (daughter), verbalized understanding back. patient transported to the [facility] via w/c by staff, left via car with her daughter.
--- NOTE | 2022-06-01 12:37 | W.MHC.F2F ---
Service Date Service Date: 06/01/22 Encounter Date of encounter: 06/01/22 Reasons for Services Signs and symptoms assessed: left knee pain and swelling, poor balance. Reason for physical therapy: home safety and mobility, therapeutic exercises, restore joint function, gait/transfer training, ADL training and energy conservation Reason for occupational therapy: home safety and mobility, therapeutic exercises, restore joint function, gait/transfer training, ADL training and energy conservation MD Overseeing Care: Jalil Giles Homebound: Leaving the home is medically contraindicated at this time without the asist of a device and/or another person due th the listed conditions above and below. Reason homebound: unsteady gait / fall risk, pain with ambulation, pain with transfers, poor balance / fall risk, non-weight bearing and unable to drive Homebound supporting statement: Pt. is considered home bound due to recent surgery. Unable to drive, poor balance, poor gait mechanics. Certification: Based on the above findings, I certify that this patient is confined to the home and needs intermittent group home care, physical therapy and/or speech therapy, or continues to need occupational therapy. The patient is under my care, and I have initiated the establishment of the plan of care. The patient will be followed by a physician who will periodically review the plan of care.
--- NOTE | 2022-06-01 13:01 | MHC.CM.PN ---
PT MEDICALLY CLEARED FOR D/C HOME W/HVNA FOR HOME PT, FAMILY FOR TRANSPORT
== END 2022-06-01 11:57 | disposition home health service (06) | DRG 470 ==
LOC: HO.SSSA 06:14 → HO.S3 13:44
PROVIDERS: Physician Assistant; Admitting Provider Orthopaedic Surgery; PCP Internal Medicine; Visit Provider Orthopaedic Surgery
PROC: 0SRD0J9 Replacement of Left Knee Joint with Synthetic Substitute, Cemented, Open Approach (ICD-10-PCS; CPT 27447; principal; 2022-05-30 07:30)
DX: M17.12 Unilateral primary osteoarthritis, left knee (principal); F32.A Depression, unspecified; E78.5 Hyperlipidemia, unspecified; I10 Essential (primary) hypertension; Z20.822 Contact with and (suspected) exposure to COVID-19; Z56.0 Unemployment, unspecified; Z91.013 Allergy to seafood; Z88.5 Allergy status to narcotic agent; Z88.8 Allergy status to other drugs, medicaments and biological substances; Z79.899 Other long term (current) drug therapy
CPT/HCPCS: 36415; 73560; 80048; 85025; 86850; 86900; 86901; 87635; 87640; 87641; 88305; 88311; 93005; 97110; 97116; 97162; 97530; C1713; C1776; J0690; J1100; J1170; J2250; J2370; J2405; J2795; Q0163

== ENCOUNTER 2022-06-07 12:33 | Outpatient (REF) | payer OTHER, MEDICAID, SELFPAY ==
--- NOTE | ~2022-06-07 | US_ITS ---
EXAMINATION: US VENOUS ULTRASOUND WITH DOPPLER LOWER EXTREMITY, LEFT CLINICAL INFORMATION: Swelling. Post knee replacement. COMPARISON: None TECHNIQUE: Ultrasound of the deep veins is performed from the hip to the calf with compression sonography and color and pulse Doppler assessment. Spectral analysis with color-flow imaging is performed. FINDINGS: The visualized common femoral vein, superficial femoral vein, profunda femoral vein, and the popliteal vein shows no evidence of deep venous thrombosis. Calf veins are difficult to visualize but appear patent. There is no significant popliteal fossa cyst. US/US venous duplex LE LT IMPRESSION: No DVT demonstrated in the left lower extremity. Calf veins not optimally visualized.
== END 2022-06-07 12:34 | disposition home or self-care (01) ==
LOC: HO.US 12:33
PROVIDERS: Visit Provider Physician Assistant
DX: M79.89 Other specified soft tissue disorders (principal); Z96.652 Presence of left artificial knee joint
CPT/HCPCS: 93971

== ENCOUNTER 2022-07-17 08:02 | Outpatient (REF) | payer OTHER, MEDICAID, SELFPAY | END 2022-07-17 08:03 | disposition home or self-care (01) | LOC: HO.HOSX 08:02 | PROVIDERS: Visit Provider Physician Assistant | DX: Z13.89 Encounter for screening for other disorder (principal) ==

== ENCOUNTER 2022-07-21 08:10 | Outpatient (REF) | payer OTHER, MEDICAID, SELFPAY ==
--- NOTE | ~2022-07-21 | XR_ITS ---
EXAMINATION: XR KNEE AP STANDING BILATERAL KNEE RADIOGRAPHS XR LATERAL PATELLA VIEW OF THE LEFT KNEE CLINICAL INFORMATION: Pain in the knee. COMPARISON: X-ray of the left and right knee February 2022 and x-ray of the left knee May 2022. TECHNIQUE: AP view of both knees. Patella and lateral view of the left knee. FINDINGS: LEFT KNEE: There is a total knee arthroplasty in place. Previously noted skin marie have been removed. The components are in the usual position and are unchanged. There is no periprosthetic fracture or surrounding abnormal lucency. There is no effusion. The surrounding soft tissues are normal. RIGHT KNEE limited: On the upright AP projection there is persistent arthrosis of the medial compartment of the knee with joint space narrowing and at least some marginal osteophytes, unchanged. Borderline narrowing of the lateral compartment, unchanged. XR/XR knee standing BI IMPRESSION: Left knee: Stable left total knee arthroplasty without change compared with May 2022. Right knee: Limited single view indicative of osteoarthritis, unchanged.
--- NOTE | ~2022-07-21 | XR_ITS ---
EXAMINATION: XR KNEE AP STANDING BILATERAL KNEE RADIOGRAPHS XR LATERAL PATELLA VIEW OF THE LEFT KNEE CLINICAL INFORMATION: Pain in the knee. COMPARISON: X-ray of the left and right knee February 2022 and x-ray of the left knee May 2022. TECHNIQUE: AP view of both knees. Patella and lateral view of the left knee. FINDINGS: LEFT KNEE: There is a total knee arthroplasty in place. Previously noted skin marie have been removed. The components are in the usual position and are unchanged. There is no periprosthetic fracture or surrounding abnormal lucency. There is no effusion. The surrounding soft tissues are normal. RIGHT KNEE limited: On the upright AP projection there is persistent arthrosis of the medial compartment of the knee with joint space narrowing and at least some marginal osteophytes, unchanged. Borderline narrowing of the lateral compartment, unchanged. XR/XR knee LT 2V IMPRESSION: Left knee: Stable left total knee arthroplasty without change compared with May 2022. Right knee: Limited single view indicative of osteoarthritis, unchanged.
== END 2022-07-21 08:11 | disposition home or self-care (01) ==
LOC: HO.HOSX 08:10
PROVIDERS: Visit Provider Physician Assistant
DX: M25.562 Pain in left knee (principal)
CPT/HCPCS: 73560; 73565

== ENCOUNTER 2022-08-03 12:32 | Outpatient (REF) | payer OTHER, SELFPAY ==
[2022-08-03 15:34] LABS: Alanine Aminotransferase 32 U/L (0-31); Alkaline Phosphatase 155 U/L (39-117); Anion Gap 20 (12-20); Aspartate Amino Transferase 32 U/L (5-31); Bilirubin Total 0.3 mg/dL (0.0-1.0); Blood Urea Nitrogen 12 mg/dL (9-16); Calcium 9.5 mg/dL (8.4-10.2); Carbon Dioxide 24 mmol/L (22-29); Chloride 103 mmol/L (96-108); Cholesterol 216 mg/dL; Estimated Glomerular Filt Rate > 60; Glucose Random 88 mg/dL (60-115); HDL Cholesterol 51 mg/dL; Potassium 4.6 mmol/L (3.3-5.1); Sodium 142 mmol/L (135-145)
[2022-08-03 15:43] LABS: LDL Cholesterol Calculated 129 mg/dl; Triglycerides 182 mg/dL
== END 2022-08-03 12:33 | disposition home or self-care (01) ==
LOC: HO.LAB 12:32
PROVIDERS: PCP Internal Medicine; Visit Provider Internal Medicine
DX: E78.00 Pure hypercholesterolemia, unspecified (principal); F32.9 Major depressive disorder, single episode, unspecified; G47.00 Insomnia, unspecified; I10 Essential (primary) hypertension; M17.12 Unilateral primary osteoarthritis, left knee
CPT/HCPCS: 36415; 80053; 80061

== ENCOUNTER 2022-08-28 12:08 | Outpatient (REF) | payer OTHER, SELFPAY ==
--- NOTE | ~2022-08-28 | XR_ITS ---
EXAMINATION: KNEE X-RAY CLINICAL INFORMATION: Knee replacement COMPARISON: Previous x-ray most recent June 2022 TECHNIQUE: Standing AP view of both knees and lateral and sunrise view of the left knee FINDINGS: Left: There is a 3 component left knee replacement. No fracture, dislocation or x-ray evidence of loosening is seen. There is no appreciable joint effusion. There may be mild soft tissue swelling over the anterior knee. Standing AP view of the right knee demonstrates arthritis at the medial femoral tibial joint. XR/XR knee standing BI IMPRESSION: Left knee: Stable appearance to the left knee replacement. Right knee: Arthritis at the medial femoral tibial joint.
--- NOTE | ~2022-08-28 | XR_ITS ---
EXAMINATION: KNEE X-RAY CLINICAL INFORMATION: Knee replacement COMPARISON: Previous x-ray most recent June 2022 TECHNIQUE: Standing AP view of both knees and lateral and sunrise view of the left knee FINDINGS: Left: There is a 3 component left knee replacement. No fracture, dislocation or x-ray evidence of loosening is seen. There is no appreciable joint effusion. There may be mild soft tissue swelling over the anterior knee. Standing AP view of the right knee demonstrates arthritis at the medial femoral tibial joint. XR/XR knee LT 2V IMPRESSION: Left knee: Stable appearance to the left knee replacement. Right knee: Arthritis at the medial femoral tibial joint.
== END 2022-08-28 12:09 | disposition home or self-care (01) ==
LOC: HO.HOSX 12:08
PROVIDERS: Visit Provider Orthopaedic Surgery
DX: M25.561 Pain in right knee (principal); Z96.652 Presence of left artificial knee joint
CPT/HCPCS: 73560; 73565

== ENCOUNTER 2022-08-30 14:00 | Outpatient (RCR) | payer OTHER, MEDICAID, SELFPAY ==
--- NOTE | 2022-06-15 14:32 | MHC.PT.EP ---
[facility] [place] Office [place] Office [place] Office [address] Akilah Barton [address] [phone] F: [phone] F: [phone] F: [phone] F: [phone] Physical Therapy Plan of Care Date of Evaluation: Date of Surgery: 05/30/22 Diagnosis: S/P LEFT TKA Assessment: 72 YO FEMALE REF TO PT S/P LEFT TKR ON 05/30/22. SHE RESIDES W FAMILY IN A 3RD FLOOR APT, STAIRS ONLY, AND IS CURRENTLY AMB W A WALKER (CANE W STAIRS). OBJECTIVE FINDINGS: (+) EDEMA LEFT KNEE, LIMITED ROM LEFT KNEE, TIGHT HIP FLEXORS/ CALF MM, (+) STRENGTH DEFICITS, AND GEN Lt KNEE PAIN. FUNCTIONALLY, Pt IS LIMITED WITH TRANSFERS (INCR UEs USAGE), STANDING, GAIT MECHANICS, STAIR MGMT, AND RESTRICTED WITH MORE PHYSICALLY DEMANDING ADLs. Pt WOULD BENEFIT FROM PT AT THIS TIME TO GUIDE HER IN HER POST-OP COURSE, DEV A PROGR HEP, ADDRESS PAIN MGMT, AND OBTAINING MAXIMAL LEVEL OF FUNCTIONAL INDEPENDENCE. Frequency and Duration: The patient will be seen 2 x WK x 10 WKS Short Term Goals: Pt DEMON PROPER QUAD SET IN 1 WK Pt'S LEFT KNEE EDEMA DECR AND PAIN DECREASED TO 2-3/10 IN 2 WKS Pt DEMON WFL AROM HIP EXT AND ANKLE DF/PF AND AROM LEFT KNEE 0* TO 120* IN 3 WKS Pt DEMO IMPROVED GAIT MECH W LEAST RESTRICTIVE AD ON LEVEL GROUND AND STAIRS IN 2 WKS Pt INDEP W SCAR MOBILITY LEFT ANT KNEE IN 3 WKS Sales Planner Goals: Pt INDEP W HEP PROGRESSION AND SELF-SX MGMT STRATEGIES IN 10 WKS Pt DEMON INDEP GAIT MECH W/O AD ON LEVEL AND STAIRS, AND INCR OVERALL FUNCT INDEPENDENCE/ INDEP ADLs EVIDENT W IMPROVED LEFI SCORE BY 5-15 POINTS (AT EVAL /80) IN 10 WKS Pt's LEFT LE STRENGTH IMPROVED BY 1 GRADE IN 10 WKS Treatment Plan: Modalities to reduce pain, spasms and effusion. Manual therapy to restore motion and function. Therapeutic exercise to improve strength and flexibility. Neuromuscular re-education for posture and balance. Therapeutic activities to return to functional activities of daily living. Electronically signed by: Debra Valverde PT Please sign and return to therapist. Thank you for your referral.
--- NOTE | 2022-08-30 14:58 | MHC.PT.DC ---
[facility] Office [place] Office [place] Office [address] Akilah Barton [facility] [phone] F: [phone] F: [phone] F: [phone] F: [phone] Physical Therapy Discharge Report Diagnosis: S/P LEFT TKA Date of Surgery: 05/30/22 Date of Evaluation: 06/15/22 Date of Discharge: 08/30/22 Treatments to Date: 13 Cancellations to Date: 2 No Shows to Date: 2 Discharge Status: Achieved Goals Improved Function Independent with HEP Discharge Summary: Pt MET HER PT GOALS AND AT THIS TIME SHE FEELS READY FOR D/C WITH HER PROGRESSIVE HEP- Pt'S SON ASSISTS HER WITH HEP PRN. Pt AMB W/O ASST DEVICES ON LEVEL AND STAIRS- SHE HAS 0* TO 122* LEFT KNEE AROM AND HER Lt LE STRENGTH IS WFL/ MUCH IMPROVED. SHE HAS RESUMED HER REG ADLs-> COOKING, WALKING, ETC, EVIDENT W IMPROVED LEFI SCORE. Electronically signed by: Debra Valverde,PT Please sign and return to therapist. Thank you for your referral.
== END 2022-08-30 14:59 | disposition home or self-care (01) ==
LOC: HO.PT 14:00
PROVIDERS: PCP Internal Medicine; Visit Provider Physician Assistant
DX: M17.12 Unilateral primary osteoarthritis, left knee (principal)
CPT/HCPCS: 97110; 97116; 97140; 97162; 97530

== ENCOUNTER 2023-06-18 12:10 | Outpatient (REF) | payer MEDICARE, MEDICAID, SELFPAY ==
--- NOTE | ~2023-06-18 | XR_ITS ---
EXAMINATION: XR KNEE STANDING BILATERAL XR LEFT KNEE CLINICAL INFORMATION: Knee pain COMPARISON: Prior radiographs from 08/28/2022 TECHNIQUE: AP standing view both knees Left knee, sunrise and lateral views FINDINGS: AP standing view: There is a constrained appearance of the femoral and tibial components of the knee arthroplasty. No hardware loosening. Alignment is normal. At the right knee, there is chronic moderate narrowing of the medial tibial femoral joint space with osteophyte formation. Left knee: There is an intact resurfaced patella. The alignment is normal at patellofemoral and tibiofemoral compartments. No osteolysis or fracture around the hardware. No knee joint effusion. XR/XR knee LT 2V IMPRESSION: * No acute abnormalities at either knee compared to 08/28/2022. * There is stable, intact appearance of components of the left total knee arthroplasty. No hardware loosening or periprosthetic fracture. 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
--- NOTE | ~2023-06-18 | XR_ITS ---
EXAMINATION: XR KNEE STANDING BILATERAL XR LEFT KNEE CLINICAL INFORMATION: Knee pain COMPARISON: Prior radiographs from 08/28/2022 TECHNIQUE: AP standing view both knees Left knee, sunrise and lateral views FINDINGS: AP standing view: There is a constrained appearance of the femoral and tibial components of the knee arthroplasty. No hardware loosening. Alignment is normal. At the right knee, there is chronic moderate narrowing of the medial tibial femoral joint space with osteophyte formation. Left knee: There is an intact resurfaced patella. The alignment is normal at patellofemoral and tibiofemoral compartments. No osteolysis or fracture around the hardware. No knee joint effusion. XR/XR knee standing BI IMPRESSION: * No acute abnormalities at either knee compared to 08/28/2022. * There is stable, intact appearance of components of the left total knee arthroplasty. No hardware loosening or periprosthetic fracture. 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
== END 2023-06-18 12:11 | disposition home or self-care (01) ==
LOC: HO.HOSX 12:10
PROVIDERS: Visit Provider Orthopaedic Surgery
DX: Z96.652 Presence of left artificial knee joint (principal)
CPT/HCPCS: 73560; 73565; 99212

== ENCOUNTER 2023-06-18 12:55 | Outpatient (AMB) | payer OTHER, MEDICAID, SELFPAY ==
--- NOTE | 2023-06-18 13:13 | MHC.OFFVIS ---
Intake Vital Signs 06/18/23 13:14 Height 5 ft 4 in Weight 176 lb BMI 30.2 Intake Visit Reasons: OV- LT TKA 05/30/22 NE Intake Note: Anabela is a 72 year old female who presents today for a follow up appointment?s/p Left TKA 05/30/22.?Patient reports having off and on pain when she over works her left knee. Allergies oxycodone [From Percocet] Allergy (Verified 08/28/22 14:01) Anxiety pregabalin [From Lyrica] Allergy (Verified 08/28/22 14:01) Rash tramadol Allergy (Verified 08/28/22 14:01) Anxiety seafood Adverse Reaction (Verified 08/28/22 14:01) Vomiting HPI OV- LT TKA 05/30/22 NE HPI Details Anabela is a 73 year old woman who presents ~1 year S/P left TKA. She says she is doing well overall and is able to walk comfortably. She complains of pain in her knee with overuse, but this is tolerable and resolves with rest. [facility] Medical History Arthritis Depression Hypercholesteremia Hypertension Insomnia Surgical History Hx of appendectomy Hx of section Hx of colonoscopy Hx of left cataract extraction Hx of left knee surgery Social History Household Members: Other Household Members Other:: son Housing: Apartment Are you a primary childbirth and infant care teacher to a significant other at home: No Do you presently have visiting nurse or other home services: No Patient Tobacco Use Status: Never used Tobacco service: No Current occupational status: unemployed Review of Systems Const All systems reviewed & are unremarkable except as noted in HPI and below Physical Exam Vital Signs: BMI result Body Mass Index 30.2 Const General: no acute distress and alert Orientation/consciousness: patient oriented x3 Neuro General: patient oriented x3 Extrem Other: Left knee: Well-healed incision 0-130 degrees ROM walking comfortably Psych Appearance: grossly normal Affect: normal affect Attitude: cooperative Results Reviewed Results Reviewed: I personally reviewed relevant radiographs. Left total knee arthroplasty in expected post operative position with no hardware complications or evidence of loosening Assessment & Plan Assessment & Plan (1) Status post total knee replacement, left: Code(s): Z96.652 - Presence of left artificial knee joint Plan: This is a 73 year old woman S/P left TKA, DOS: 05/27/22. She is doing well overall, with some intermittent pain with overuse of her knee. She is happy with the results of her surgery and is able to ambulate comfortably. I recommend she continue activity as tolerated, and take NSAIDs prn. She can follow up prn. Plan Scribed for Jalil Giles MD by Colton Hatch, center medical and lab director, on 06/18/23 at 1:25 PM, EST. Orders: Orders XR knee LT 2V Today M25.569 - Pain in unspecified knee XR knee standing BI Today M25.569 - Pain in unspecified knee Coding Level of Care Code Est Pt Level 3 (21085) Diagnoses Status post total knee replacement, left Z96.652
[2023-06-18 13:14] VITALS: BMI 30.2
== END 2023-06-18 14:29 | disposition home or self-care (01) ==
PROVIDERS: PCP Internal Medicine; Visit Provider Orthopaedic Surgery
DX: Z47.89 Encounter for other orthopedic aftercare (principal); Z96.652 Presence of left artificial knee joint
CPT/HCPCS: 99213

== ENCOUNTER 2023-07-03 08:33 | Outpatient (REF) | payer MEDICARE, SELFPAY ==
[2023-07-03 09:26] LABS: Estimated Average Glucose 108 mg/dL; Hemoglobin A1c % 5.4 %
[2023-07-03 10:40] LABS: Alanine Aminotransferase 14 U/L (0-31); Albumin Level 3.9 g/dL (3.5-5.0); Alkaline Phosphatase 133 U/L (39-117); Anion Gap 11 (12-20); Aspartate Amino Transferase 16 U/L (5-31); Bilirubin Total 0.3 mg/dL (0.0-1.0); Blood Urea Nitrogen 17 mg/dL (9-16); Calcium 9.1 mg/dL (8.4-10.2); Carbon Dioxide 29 mmol/L (22-29); Chloride 107 mmol/L (96-108); Cholesterol 219 mg/dL; Estimated Glomerular Filt Rate > 60; Glucose Random 96 mg/dL (60-115); HDL Cholesterol 56 mg/dL; LDL Cholesterol Calculated 139 mg/dl; Potassium 4.3 mmol/L (3.3-5.1); Sodium 143 mmol/L (135-145); Total Protein 7.2 g/dL (6.5-8.0); Triglycerides 123 mg/dL
[2023-07-03 10:46] LABS: Thyroid Stimulating Hormone 3.94 uIU/mL (0.32-4.0)
== END 2023-07-03 08:34 | disposition home or self-care (01) ==
LOC: HO.LAB 08:33
PROVIDERS: PCP Internal Medicine; Visit Provider Internal Medicine
DX: E78.00 Pure hypercholesterolemia, unspecified (principal); G47.00 Insomnia, unspecified; I10 Essential (primary) hypertension; Z13.31 Encounter for screening for depression
CPT/HCPCS: 36415; 80053; 80061; 83036; 84443

== ENCOUNTER 2023-07-18 13:48 | Outpatient (REF) | payer MEDICARE, SELFPAY ==
--- NOTE | ~2023-07-18 | MM_ITS ---
EXAMINATION: MM SCREENING DIGITAL BREAST TOMOSYNTHESIS, BILATERAL CLINICAL INFORMATION: Screening. Asymptomatic. COMPARISON: Mammography: 03/20/2022 from [facility] TECHNIQUE: Digital breast tomosynthesis is performed in both the craniocaudal and mediolateral oblique views along with computer-aided detection (CAD). Synthesized 2D images are generated from the tomosynthesis. FINDINGS: The breasts are heterogeneously dense, which may obscure small masses (ACR BI-RADS breast composition Category c). Breast density is approaching extremely dense. There are benign bilateral vascular calcifications. Several circumscribed small nodules in the left breast upper outer quadrant and right breast far posterior upper quadrant are unchanged and consistent with intramammary lymph nodes. No suspicious masses, suspicious microcalcifications, or areas of architectural distortion are present. The overall parenchymal pattern of both breasts is unchanged. MM/MM tomosynthesis screening BI IMPRESSION: No mammographic evidence of malignancy. Stable benign findings. ASSESSMENT: BI-RADS BI-RADS 2 - Benign Findings RECOMMENDATION: Routine annual mammography screening. 1 year F/U This examination should not preclude the clinical evaluation of a suspicious palpable abnormality. This patient's information was entered into a reminder system with a target due date for their next mammogram.
== END 2023-07-18 13:49 | disposition home or self-care (01) ==
LOC: HO.MAMMO 13:48
PROVIDERS: PCP Internal Medicine; Visit Provider Internal Medicine
DX: Z12.31 Encounter for screening mammogram for malignant neoplasm of breast (principal)
CPT/HCPCS: 77063; 77067

== ENCOUNTER → 2023-07-18 14:30 | Outpatient (BNV) | payer MEDICARE, SELFPAY | PROVIDERS: PCP Internal Medicine; Visit Provider Radiology Diagnostic Radiology | DX: Z12.31 Encounter for screening mammogram for malignant neoplasm of breast (principal) | CPT/HCPCS: 77063; 77067 ==

== ENCOUNTER 2024-06-09 10:27 | Outpatient (REF) | payer MEDICARE, SELFPAY ==
[2024-06-09 10:45] LABS: MANUAL DIFF FLAG NO
[2024-06-09 11:41] LABS: Basophils Percent Auto 0.5 % (0-2); Eosinophils Absolute Auto 0.1 X10*3/uL (0.0-0.4); Eosinophils Percent Auto 1.8 % (0-4); Hematocrit 41.5 % (37.0-47.0); Hemoglobin 13.3 g/dl (12.0-16.0); Imm Gran Abs Auto 0.03 X10*3/uL (0.00-0.03); Imm Gran Pct Auto 0.4 % (0.0-0.4); Lymphocytes Absolute Auto 2.4 X10*3/uL (1.2-4.9); Mean Corpuscular Hemoglobin 25.9 pg (27.0-33.0); Mean Corpuscular Volume 80.9 fL (80.0-98.0); Mean Platelet Volume 10.3 fL (9.4-12.3); Monocytes Absolute Auto 0.5 X10*3/uL (0.1-1.2); Monocytes Percent Auto 6.8 % (2-11); Neutrophils Absolute Auto 4.3 x10*3/uL (2.0-8.3); Neutrophils Percent Auto 58.5 % (45-73); Platelet Count 333 X10*3/uL (160-400); Red Blood Count 5.13 X10*6/uL (4.20-5.50); Red Cell Distribution Width 13.9 % (11.0-16.0); White Blood Count 7.4 X10*3/uL (4.8-10.8)
[2024-06-09 11:58] LABS: Alanine Aminotransferase 12 U/L (0-31); Albumin Level 4.1 g/dL (3.5-5.0); Alkaline Phosphatase 132 U/L (39-117); Anion Gap 12 (12-20); Aspartate Amino Transferase 15 U/L (5-31); Bilirubin Total 0.4 mg/dL (0.0-1.0); Blood Urea Nitrogen 13 mg/dL (9-16); Carbon Dioxide 29 mmol/L (22-29); Chloride 105 mmol/L (96-108); Cholesterol 210 mg/dL (<200); Estimated Glomerular Filt Rate > 60; Glucose Random 98 mg/dL (60-115); HDL Cholesterol 49 mg/dL (>40); LDL Cholesterol Calculated 127 mg/dL (<100); Sodium 142 mmol/L (135-145); Total Protein 7.7 g/dL (6.5-8.0); Triglycerides 173 mg/dL (<150)
== END 2024-06-09 10:28 | disposition home or self-care (01) ==
LOC: HO.LAB 10:27
PROVIDERS: PCP Internal Medicine; Visit Provider Internal Medicine
DX: E78.00 Pure hypercholesterolemia, unspecified (principal); G47.00 Insomnia, unspecified; I10 Essential (primary) hypertension; Z68.36 Body mass index [BMI] 36.0-36.9, adult
CPT/HCPCS: 36415; 80053; 80061; 85025